=== PATIENT | female | born 1960 | race American Indian/Alaskan Native ===

== ENCOUNTER 2021-06-28 18:55 | Emergency (ER) | payer SELFPAY ==
--- NOTE | 2021-06-28 18:57 | Emergency Department Report ---
ED Neuro Deficit HPI - General Chief Complaint: Neuro Symptoms/Deficit Stated Complaint: STROKE Time Seen by Provider: 06/28/21 18:55 Source: patient, EMS (Verbal report received from emergency medical services. EMS documentation not available at time of chart dictation ), RN notes reviewed Mode of arrival: Stretcher Limitations: Physical Limitation - History of Present Illness Initial Comments: The patient is a 61-year-old female with a history of hypertension and congestive heart failure, unknown EF, who was brought to the hospital by EMS as an out of hospital code stroke activation. EMS reports normal Accu-Chek and normal vital signs in the field. Last known well time is 10:00 AM. Patient denies physical pain. Stroke symptoms include slurred speech, right-sided facial droop, and right arm and leg weakness and numbness. EMS does not indicate that the patient take systemic anticoagulation. -: This morning (As per EMS and patient, 10:00 this) Location: speech, right face, right arm Presenting Symptoms: Present: Weak/Paralyzed One Side, Facial Droop/Numbness, Unable to Speak Clearly Place: home Context: other (10:00 AM) Associated Symptoms: denies other symptoms (Patient denies physical pain) ED Review of Systems ROS: Stated complaint: STROKE Other details as noted in HPI Comment: All other systems reviewed and negative Cardiovascular: denies: chest pain Gastrointestinal: denies: abdominal pain Neurological: weakness, numbness ED Neuro Physical Exam - General Limitations: Physical Limitation General appearance: alert, anxious, obese Suspected Stroke: Yes - Head Head exam: Present: atraumatic, normocephalic - Eye Eye exam: Present: normal appearance, EOMI. Absent: nystagmus - ENT ENT exam: Present: normal exam, normal orophraynx, mucous membranes moist, normal external ear exam - Neck Neck exam: Present: normal inspection, full ROM. Absent: tenderness, meningismus - Respiratory Respiratory exam: Present: normal lung sounds bilaterally. Absent: respiratory distress, wheezes, rales, rhonchi, stridor - Cardiovascular Cardiovascular Exam: Present: regular rate, normal rhythm, normal heart sounds. Absent: bradycardia, tachycardia, irregular rhythm, systolic murmur, diastolic murmur, rubs, gallop - GI/Abdominal GI/Abdominal exam: Present: soft. Absent: distended, tenderness, guarding, rebound, rigid, pulsatile mass - Extremities Exam Extremities exam: Present: normal inspection, full ROM, other (2+ pulses noted in the bilateral upper and lower extremities. There is no palpable cord. negative Homans sign. Muscular compartments are soft. The pelvis is stable.). Absent: calf tenderness - Back Exam Back exam: Present: normal inspection. Absent: tenderness, CVA tenderness (R), CVA tenderness (L), paraspinal tenderness, vertebral tenderness - Neurological Exam Neurological exam: Present: alert, motor sensory deficit (There is right arm and leg weakness. There is decreased sensation to light touch right arm and right leg), other (There is right-sided facial droop.) - NIHSS Assessment Interval: Baseline 1a. Level of Consciousness: alert/keenly responsive 1b. LOC Questions: answers both correctly 1c. LOC Commands: performs tasks correctly 2. Best Gaze: normal 3. Visual: no visual loss 4. Facial Palsy: partial paralysis 5b. Motor Arm Right: some gravity effort 5a. Motor Arm Left: drift 6a. Motor Leg Left: drift 6b. Motor Leg Right: some gravity effort 7. Limb Ataxia: present 1 limb 8. Sensory: mild/moderate sensory loss 9. Best Language: no aphasia 10. Dysarthria: mild/moderate dysarthria 11. Extinction/Inattention: no abnormality Total Score: 11 Stroke Severity: Moderate Stroke - Psychiatric Psychiatric exam: Present: anxious - Skin Skin exam: Present: warm, dry, intact, normal color. Absent: rash ED Course Vital Signs 06/28/21 06/28/21 19:40 20:00 Temperature 98.2 F 98.2 F Pulse Rate 88 89 Respiratory 16 16 Rate Blood Pressure 135/77 143/89 [Right] O2 Sat by Pulse 98 99 Oximetry - Lab Data Vital Signs 06/28/21 06/28/21 19:40 20:00 Temperature 98.2 F 98.2 F Pulse Rate 88 89 Respiratory 16 16 Rate Blood Pressure 135/77 143/89 [Right] O2 Sat by Pulse 98 99 Oximetry - Radiology Data Radiology results: pending, report reviewed, image reviewed CT head/brain wo con INDICATION / CLINICAL INFORMATION: 61 years Female; Stroke symptoms. TECHNIQUE: Routine CT head without contrast. All CT scans at this location are performed using CT dose reduction for ALARA by means of automated exposure control. COMPARISON: None. FINDINGS: BRAIN / INTRACRANIAL CONTENTS: There is relative a decrease attenuation along the anterior left insular region and adjacent frontal lobe concerning for early evolving left MCA infarct. There is relative increased attenuation within an anterior branch at the trifurcation compatible with associated thrombus. Otherwise, the brain appears to demonstrate appropriate attenuation for age. The ventricular system is within normal limits in size and configuration. There is no clear CT evidence of acute intracranial hemorrhage. ORBITS: No significant abnormality of visualized orbits. SINUSES / MASTOIDS: No significant abnormality in the visualized paranasal sinuses or mastoid air cells. CRANIOCERVICAL JUNCTION: No significant abnormality. ADDITIONAL FINDINGS: None. IMPRESSION: 1. There is edema involving the anterior left insular region and adjacent frontal lobe indicative of early evolving left MCA infarct as described. 2. There is no clear CT evidence of acute intracranial hemorrhage. The study was specified as code stroke and called emergently to Dr. Platt in the ER at 6:28 PM [facility] standard time. Signer Name: Lwe Singletary MD Signed: 06/28/2021 6:30 PM Workstation Name: [id number] [address]. CT angio neck INDICATION / CLINICAL INFORMATION: 61 years Female; stroke sx. TECHNIQUE: Thin cut axial images obtained through the head during IV bolus contrast administration. Sagittal, coronal, and 3 plane MIP reconstructions performed by the technologist. NASCET type criteria used evaluate stenoses. All CT scans at this location are performed using CT dose reduction for ALARA by means of automated exposure control. COMPARISON: None available. FINDINGS: CAROTID ARTERIES: The motion and beam hardening degrade the image quality. However, there is mild atherosclerotic calcification involving proximal left internal carotid artery without significant stenosis by NASCET criteria. The right carotid arteries are also patent without significant stenosis. VERTEBRAL ARTERIES: There is relative small caliber of the vertebral arteries which appears reflect developmental hypoplasia. There is no clear evidence of significant focal stenosis involving the vertebral arteries. However, the proximal segment on the right is obscured by the dense contrast within the adjacent venous structures. ARCH: There is no clear evidence of significant stenosis involving arch vessels. There is developmental common origin of the brachiocephalic and left common carotid arteries. ADDITIONAL FINDINGS: Rem ainder of the surrounding soft tissues are grossly normal. IMPRESSION: There is no significant stenosis involving cervical carotid arteries by NASCET criteria. 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 Signer Name: Lew Singletary MD Signed: 06/28/2021 6:34 PM Workstation Name: [id number] C CT angio head INDICATION / CLINICAL INFORMATION: 61 years Female; stroke symptoms. TECHNIQUE: Thin cut axial images obtained through the head during IV bolus contrast administration. Sagittal, coronal, and 3 plane MIP reconstructions performed by the technologist. NASCET type criteria used evaluate stenoses. Automated exposure control utilized for radiation reduction purposes. COMPARISON: None available. FINDINGS: INTERNAL CAROTID ARTERIES: The intracranial ICAs appear to demonstrate appropriate caliber without significant focal stenosis. 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 There is associated developmental origin of the posterior cerebral arteries bilaterally. CEREBRAL ARTERIES: The motion degrades the image quality at. However, the findings are compatible with a 4 mm focus of thrombus at the left MCA trifurcation with occlusion. There is more focal thrombus extending within the posterior branch at this level. However, there is reconstitution of the more distal segments. Edema was seen within the left anterior insular region into the frontal lobe compatible with evolving infarct. The remaining proximal cerebral arteries or adjacent segments appear to demonstrate appropriate caliber. ANEURYSM: None identified. ADDITIONAL FINDINGS: Remainder of the surrounding soft tissues are grossly normal. IMPRESSION: There is thrombus within an anterior branch of the left MCA trifurcation with reconstitution distally as detailed above. Edema was noted within the adjacent a left anterior insular region on the earlier CT compatible with evolving infarct. There is developmental origin of the posterior cerebral arteries bilaterally with hypoplasia the vertebrobasilar system. Signer Name: Lew Singletary MD Signed: 06/28/2021 6:39 PM Workstation Name: [id number] - Medical Decision Making Differential diagnosis, including but not limited to: Stroke, pneumonia, urinary tract infection Assessment and plan: 61-year-old female, presenting with acute stroke syndrome, presents more than 4.5 hours after last known well time. She is not a TPA candidate for this reason. CT scan of the brain suggest acute stroke. She is found to have a left MCA large vessel occlusion. she meets criteria for transfer for emergent endovascular intervention and evaluation Aspirin is ordered. Contacted [facility] stroke neurolog[facility], and discussed the pa isma's history, physical, imaging studies with the stroke neurologist, Dr. Martine Shaw Patient is accepted to [facility] for evaluation for emergent endovascular intervention and therapy. I discussed this with the patient herself, her daughter, and significant other, Mr. Mathew Suazo, who is currently on FaceTime. This patient has an emergent medical condition at this time which cannot be definitively managed at this hospital, as we do not have the ability to treat large vessel occlusions with acute ischemic strokes, with endovascular intervention. At the moment, the patient is awake, hemodynamically stable, protecting her airway, benefits transfer far outweigh risks, and she is medically suitable for transfer at this point time. I advised the patient and her family of her time sensitive diagnosis and findings. They articulated understanding. - Core Measures Measure Exclusions: not indicated - Thrombolytic Inclusion/Exclusion Thrombolytic Exclusion Criteria: Symptom Onset > 3 Hours Critical Care Time: Yes Critical care time in (mins) excluding proc time.: 35 Critical care attestation.: If time is entered above; I have spent that time in minutes in the direct care of this critically ill patient, excluding procedure time. ED Disposition Clinical Impression: Acute stroke due to occlusion of left middle cerebral artery Disposition: 02 [facility]ORT TERM HOSPITAL Is pt being admited?: No Does the pt Need Aspirin: No Condition: Critical
--- NOTE | 2021-06-28 19:35 | Cat Scan Report ---
CT head/brain wo con INDICATION / CLINICAL INFORMATION: 61 years Female; Stroke symptoms. TECHNIQUE: Routine CT head without contrast. All CT scans at this location are performed using CT dos e reduction for ALARA by means of automated exposure control. COMPARISON: None. FINDINGS: BRAIN / INTRACRANIAL CONTENTS: There is relative a decrease attenuation along the anterior left insul ar region and adjacent frontal lobe concerning for early evolving left MCA infarct. There is relative increased attenuation within an anterior branch at the trifurcation compatible with associated throm bus. Otherwise, the brain appears to demonstrate appropriate attenuation for age. The ventricular system i s within normal limits in size and configuration. There is no clear CT evidence of acute intracranial hemorrhage. ORBITS: No significant abnormality of visualized orbits. SINUSES / MASTOIDS: No significant abnormality in the visualized paranasal sinuses or mastoid air mina ls. CRANIOCERVICAL JUNCTION: No significant abnormality. ADDITIONAL FINDINGS: None. IMPRESSION: 1. There is edema involving the anterior left insular region and adjacent frontal lobe indicative of early evolving left MCA infarct as described. 2. There is no clear CT evidence of acute intracranial hemorrhage. The study was specified as code stroke and called emergently to Dr. Platt in the ER at 6:28 PM [facility] standard time. Signer Name: Lew Singletary MD Signed: 06/28/2021 7:30 PM Workstation Name: [id number]
--- NOTE | 2021-06-28 19:38 | Cat Scan Report ---
Power. CT angio neck INDICATION / CLINICAL INFORMATION: 61 years Female; stroke sx. TECHNIQUE: Thin cut axial images obtained through the head during IV bolus contrast administration. S agittal, coronal, and 3 plane MIP reconstructions performed by the technologist. NASCET type criteria used evaluate stenoses. All CT scans at this location are performed using CT dose reduction for ALAR A by means of automated exposure control. COMPARISON: None available. FINDINGS: CAROTID ARTERIES: The motion and beam hardening degrade the image quality. However, there is mild ath erosclerotic calcification involving proximal left internal carotid artery without significant stenos is by NASCET criteria. The right carotid arteries are also patent without significant stenosis. VERTEBRAL ARTERIES: There is relative small caliber of the vertebral arteries which appears reflect d evelopmental hypoplasia. There is no clear evidence of significant focal stenosis involving the verte bral arteries. However, the proximal segment on the right is obscured by the dense contrast within th e adjacent venous structures. ARCH: There is no clear evidence of significant stenosis involving arch vessels. There is development al common origin of the brachiocephalic and left common carotid arteries. ADDITIONAL FINDINGS: Remainder of the surrounding soft tissues are grossly normal. IMPRESSION: There is no significant stenosis involving cervical carotid arteries by NASCET criteria. 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 Signer Name: Lew Singletary MD Signed: 06/28/2021 7:34 PM Workstation Name: [id number]
--- NOTE | 2021-06-28 19:43 | Cat Scan Report ---
CT angio head INDICATION / CLINICAL INFORMATION: 61 years Female; stroke symptoms. TECHNIQUE: Thin cut axial images obtained through the head during IV bolus contrast administration. S agittal, coronal, and 3 plane MIP reconstructions performed by the technologist. NASCET type criteria used evaluate stenoses. Automated exposure control utilized for radiation reduction purposes. COMPARISON: None available. FINDINGS: INTERNAL CAROTID ARTERIES: The intracranial ICAs appear to demonstrate appropriate caliber without si gnificant focal stenosis. 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 There is ass ociated developmental origin of the posterior cerebral arteries bilaterally. CEREBRAL ARTERIES: The motion degrades the image quality at. However, the findings are compatible wit h a 4 mm focus of thrombus at the left MCA trifurcation with occlusion. There is more focal thrombus extending within the posterior branch at this level. However, there is reconstitution of the more dis lj segments. Edema was seen within the left anterior insular region into the frontal lobe compatible with evolving infarct. The remaining proximal cerebral arteries or adjacent segments appear to demonstrate appropriate calib er. ANEURYSM: None identified. ADDITIONAL FINDINGS: Remainder of the surrounding soft tissues are grossly normal. IMPRESSION: There is thrombus within an anterior branch of the left MCA trifurcation with reconstitution distally as detailed above. Edema was noted within the adjacent a left anterior insular region on the earlier CT compatible with evolving infarct. There is developmental origin of the posterior cerebral arteries bilaterally with hypoplasia th e vertebrobasilar system. Signer Name: Lew Singletary MD Signed: 06/28/2021 7:39 PM Workstation Name: [id number]
[2021-06-28] MEDS ORDERED: ASPIRIN 81 MG TAB CHEW PO ONE (19:54)
--- NOTE | 2021-06-28 20:02 | Consultation ---
History of Present Illness History of present illness: [facility] Consult Note # Demographics Consult Type: Acute Stroke Level 1 (0-4.5 hrs) Patient Location: Emergency Room First Name: Carine Last Name: Sherine Suazo Date of : 1960 Age: 61 Gender: Female Facility: [facility] Time of Initial Page ( Time): 06/28/2021, 18:38 Time of Return Call ( Time): 06/28/2021, 18:38 # HPI History: 61F presents with right sided weakness and slurred speech. LKWT approximately 10am. 145/82. Fingerstick 127. # Scores Time of exam and NIHSS ( Time): 06/28/2021, 18:50 Level of Consciousness 1a: [0] = Alert; keenly responsive LOC Questions 1b: [0] = Answers both questions correctly LOC Commands 1c: [0] = Performs both tasks correctly Best Gaze 2: [0] = Normal Visual 3: [0] = No visual loss Facial Palsy 4: [2] = Partial paralysis Motor Arm Left 5a: [0] = No drift Motor Arm Right 5b: [1] = Drift Motor Leg Left 6a: [0] = No drift Motor Leg Right 6b: [2] = Some effort against gravity Limb Ataxia 7: [0] = Absent Sensory 8: [1] = Dwhy-db-wuxevqif sensory loss Best Language 9: [1] = Badf-yu-qbqraufm aphasia Dysarthria 10: [1] = Wtfv-ny-xsjlbrip dysarthria Extinction and Inattention 11: [0] = No abnormality NIHSS Total: 8 # Data Head CT: no bleed per radiologist read CTA Head: MCA occlusion per radiologist read # Assessment Impression: Ischemic Stroke (Acute) # Plan Thrombolytic/Intervention: IA Intervention Thrombolytic Exclusion: > 4.5 hours Target Blood Pressure: SBP < 220 DBP < 105 Other: I have discussed my recommendations with the referring provider Disposition: transfer to IA capable facility # Logistics Telemedicine: Interactive 2 way audio and visual telecommunication technology was utilized during this visit Electronically signed at 06/28/2021 20:02 ( Time) by Matt Arndt MD Medications and Allergies Active Meds: Active Medications Aspirin (Aspirin 81 Mg Tab Chew) 324 mg PO ONCE ONE Stop: 06/28/21 19:55 Physical Examination - Vital Signs Vital Signs: Vital Signs Temp Pulse Resp BP Pulse Ox 98.2 F 88 16 135/77 98 06/28/21 19:40 06/28/21 19:40 06/28/21 19:40 06/28/21 19:40 06/28/21 19:40
[2021-06-28] MEDS ORDERED: ASPIRIN 81 MG TAB CHEW ONE (20:04)
[2021-06-28 20:26] LABS: Basophils % (Auto) 0.3 % (0.0-1.8); Eosinophils # (Auto) 0.1 K/mm3 (0.0-0.4); Eosinophils % (Auto) 1.2 % (0.0-4.3); Hematocrit 39.9 % (30.3-42.9); Hemoglobin 12.4 gm/dl (10.1-14.3); Lymphocytes # (Auto) 1.4 K/mm3 (1.2-5.4); Lymphocytes % (Auto) 30.3 % (13.4-35.0); Mean Corpuscular HGB Conc 31 % (30-34); Mean Corpuscular Volume 85 fl (79-97); Monocytes # (Auto) 0.5 K/mm3 (0.0-0.8); Monocytes % (Auto) 11.4 % (0.0-7.3); Platelet Count 248 K/mm3 (140-440); Red Blood Count 4.68 M/mm3 (3.65-5.03); Red Cell Distribution Width 13.5 % (13.2-15.2)
--- NOTE | 2021-06-28 20:30 | XRay Report ---
CHEST 1 VIEW 06/28/2021 7:18 PM INDICATION / CLINICAL INFORMATION: CVA, weakness. COMPARISON: None available. FINDINGS: SUPPORT DEVICES: None. HEART / MEDIASTINUM: No significant abnormality. LUNGS / PLEURA: No significant pulmonary abnormality. No significant pleural effusion. No pneumothora x. ADDITIONAL FINDINGS: No significant additional findings. IMPRESSION: 1. No acute abnormality of the chest. Signer Name: Luis Miguel Benjamin MD Signed: 06/28/2021 8:26 PM Workstation Name: [id number]
[2021-06-28 20:31] LABS: INR 1.01 (0.87-1.13); Partial Thromboplastin Time 27.1 Sec. (24.2-36.6); Thrombin Time 19.3 Sec. (15.1-19.6)
[2021-06-28 21:14] VITALS: BP 128/92
== END 2021-06-28 21:13 | disposition short-term general hospital (02) ==
LOC: ED 18:55
DX: I63.312 Cerebral infarction due to thrombosis of left middle cerebral artery (principal)
CPT/HCPCS: 70450; 70496; 70498; 71045; 82550; 83735; 84443; 85025; 85610; 85670; 85730; 99291; Q9967; 80320; 99284; G0480